=== PATIENT | female | born 1990 | race African-American/Black ===

== ENCOUNTER 2023-10-05 23:32 | Emergency (ER) | payer MEDICAID, OTHER ==
[2023-10-05] MEDS ORDERED: Ketorolac Tromethamine 30 MG (1 mL) VIAL ONE (23:53)
[2023-10-06 00:32] LABS: #Eosinphils 0.1 thou/uL (0.0-0.7); #Monocytes 0.6 thou/uL (0.11-0.59); #Neutrophils 3.4 thou/uL (1.40-6.50); %Basophils 0.6 % (0.0-1.0); %Eosinophils 1.8 % (0.0-10.0); %Lymphocytes 38.7 % (21.0-51.0); %Monocytes 8.6 % (0.0-10.0); %Neutrophils 50.2 % (42.0-75.0); Hematocrit 34.6 % (36.0-47.0); Hemoglobin 11.7 g/dL (12.0-16.0); Mean Corpuscular HGB CONC 33.8 g/dL (32.0-36.0); Mean Corpuscular Volume 85.6 fl (78.0-98.0); Mean Platelet Volume 11.6 fL (7.4-10.4); Platelet Count 231 10x3/uL (130-400); RBC Distribution Width 12.9 % (11.5-14.5); Red Blood Cell (RBC) Count 4.04 mill/uL (4.20-5.40); White Blood Cell (WBC) Count 6.8 10x3/uL (4.8-10.8)
[2023-10-06 00:45] LABS: BHCG - Serum Negative (NEGATIVE); Pregs Control Background? CLEAR/WHITE (CLR/WHITE); Pregs Control Bar Appear? YES (CONTROL BAR)
[2023-10-06 00:54] LABS: ALT (SGPT) 7 U/L (8-55); AST (SGOT) 13 U/L (5-34); Albumin 4.2 g/dL (3.5-5.0); Alkaline Phosphatase 41 U/L (40-110); Anion Gap 15 mmol/L (10-20); BUN (Urea Nitrogen) 16 mg/dL (7.0-18.7); Bilirubin, Total 1.4 mg/dL (0.2-1.2); Calc. Creatinine Clearance 0 mL/min (70-130); Calcium 9.1 mg/dL (7.8-10.44); Carbon Dioxide 20 mmol/L (22-29); Chloride 106 mmol/L (98-107); Estimated GFR 98; Globulin 2.9 g/dL (2.4-3.5); Glucose 92 mg/dL (70-105); Lipase 19 U/L (8-78); Potassium 3.4 mmol/L (3.5-5.1); Protein, Total 7.1 g/dL (6.0-8.3); Sodium 138 mmol/L (136-145)
== END 2023-10-06 01:40 | disposition home or self-care (01) ==
LOC: ERS 23:32
DX: M25.521 Pain in right elbow (principal); M25.562 Pain in left knee; R07.89 Other chest pain; V89.2XXA Person injured in unspecified motor-vehicle accident, traffic, initial encounter
CPT/HCPCS: 71045; 80053; 83690; 84703; 85025; 93005; 96374; J1885